=== PATIENT | male | born 1930 | race Caucasian/White ===

== ENCOUNTER → 2016-06-27 | Outpatient (CLI) | payer OTHER ==
[~2016-06-27] MED LIST: AMLO-110 PO; ESOM20CA PO; LISI-729 PO
[2016-06-27 11:13] LABS: BASO % 0.4 %; BASO ABS # 0.02 K/uL (0-0.2); COMPLETE YES; EOS % 6.5 %; HEMATOCRIT 39.2 % (42-52); IG% 0.4 %; LYMPH % 30.3 %; LYMPH ABS # 1.41 K/uL (1.2-3.4); MEAN CELL VOLUME 100.5 fL (80-100); MEAN CORPUSCULAR HEMOGLOBIN 34.9 pg (25-34); MEAN CORPUSCULAR HGB CONC 34.7 g/dl (32-36); MEAN PLATELET VOLUME 10.2 fL (7.4-10.4); MONO % 6.7 %; NEUT % 55.7 %; PLATELET COUNT 132 K/uL (130-400); WHITE BLOOD COUNT 4.65 K/uL (4.8-10.8)
[2016-06-27 11:42] LABS: ALT/SGPT 22 U/L (12-78); BLOOD UREA NITROGEN 20 mg/dl (7-18); BUN/CREATININE RATIO 12.3 (10-20); CALCIUM 8.6 mg/dl (8.5-10.1); CARBON DIOXIDE 28 mmol/L (21-32); CHLORIDE 108 mmol/L (98-107); CHOLESTEROL 165 mg/dl (0-200); GLUCOSE 87 mg/dl (70-99); POTASSIUM 4.1 mmol/L (3.5-5.1); SODIUM 143 mmol/L (136-145)
[2016-06-27 11:46] LABS: ALB/GLOB RATIO 1.2 (0.9-2); ALKALINE PHOSPHATASE 57 U/L (45-117); AST/SGOT 15 U/L (15-37); CHOLESTEROL/HDL RATIO 2.6; HDL CHOLESTEROL 64 mg/dl; LDL CHOLESTEROL CALCULATED 94 mg/dl; TRIGLYCERIDES 33 mg/dl (0-150); VERY LOW DENSITY LIPOPROT CALC 7 mg/dl
--- NOTE | 2016-07-02 10:43 | CODING QUERY MEDICAL NECESSITY ---
SUPPORTING DIAGNOSIS NEEDED A supporting diagnosis is required for the test/procedure performed on this patient in order for us to be reimbursed by the patient's insurance. Please provide a supporting diagnosis for the following test/procedure listed below next to the test name along with your signature. *If there is no additional diagnosis for this patient that would support the following test/procedure please document that below next to the test/procedure. Test(s)/Procedure(s) that require a supporting diagnosis: * VITAMIN D 25-HYDROXY DIAGNOSIS: * DOS: 06/27/16 Provider Signature: Date: Thank you Nupur [facility] Information [facility] Once completed, please kindly fax back to [phone] For questions please call [phone]
== END | disposition home or self-care (01) ==
LOC: C.LABBC 07:37
PROVIDERS: ATTEND Internal Medicine
DX: R91.1 Solitary pulmonary nodule (principal); M85.80 Other specified disorders of bone density and structure, unspecified site

== ENCOUNTER → 2016-06-28 | Outpatient (CLI) | payer OTHER ==
[2016-06-28 11:25] LABS: FERRITIN 351.8 ng/ml (8.0-388.0)
== END | disposition home or self-care (01) ==
LOC: C.LABBC 07:37
PROVIDERS: ATTEND Internal Medicine
DX: D69.6 Thrombocytopenia, unspecified (principal)

== ENCOUNTER → 2016-06-29 | Outpatient (CLI) | payer OTHER ==
[2016-06-30 08:00] LABS: PATIENT HEIGHT 177.8 cm
[2016-06-30 11:55] LABS: CREATININE 1.7 mg/dl (0.6-1.4)
[2016-07-02 07:20] LABS: ALBUMIN % 64.56 %; ALPHA-2-GLOBULIN % 7.72 %; CREATININE UR 80 MG/DL (20-370); GAMMA GLOBULIN % 10.02 %
== END | disposition home or self-care (01) ==
LOC: C.LABBC 07:36
PROVIDERS: ATTEND Internal Medicine
DX: D69.6 Thrombocytopenia, unspecified (principal)

== ENCOUNTER → 2016-07-02 | Outpatient (CLI) | payer OTHER ==
--- NOTE | 2016-07-02 14:49 | DIAGNOSTIC IMAGING REPORT ---
EXAMINATION: RENAL ULTRASOUND CLINICAL HISTORY: CHRONIC KIDNEY DISEASE COMPARISON STUDY: CT scan dated 08/17/2015 FINDINGS: The right kidney measures 10.6 cm. The left kidney measures 0.4 cm. There is no evidence of hydronephrosis. 2 right renal cysts are visualized measuring 14 mm and 6 mm respectively. There is mild bilateral renal cortical thinning. No bladder abnormalities are visualized. Bilateral ureteral jets were visualized. IMPRESSION : 1. Small right renal cysts 2. Mild bilateral renal cortical thinning 3. No evidence of hydronephrosis Electronically signed by: Christopher Perry M.D. 07/02/2016 2:48 PM Dictated Date/Time: 07/02/2016 2:47 PM
== END | disposition home or self-care (01) ==
LOC: C.ULTRBC 13:33
PROVIDERS: ATTEND Internal Medicine
DX: N18.3 Chronic kidney disease, stage 3 (moderate) (principal); N28.1 Cyst of kidney, acquired

== ENCOUNTER → 2016-08-14 | Outpatient (CLI) | payer OTHER ==
--- NOTE | 2016-08-14 11:43 | DIAGNOSTIC IMAGING REPORT ---
CT OF THE CHEST WITHOUT IV CONTRAST CLINICAL HISTORY: Pulmonary nodule. Shortness of breath. COMPARISON STUDY: Abdominal pelvic CT scan dated 08/19/2015 CT DOSE: 462.27 mGycm TECHNIQUE: CT of the thorax was performed from the thoracic inlet to the lung bases. Images are reviewed in the axial, sagittal, and coronal planes. IV contrast was not administered for this examination. FINDINGS: Thyroid: Imaged portions of the thyroid gland are normal in appearance. Thoracic aorta: The thoracic aorta is normal in course and caliber, noting standard 3 vessel arch anatomy. Heart: The heart is normal in size. There are mild coronary artery calcifications. Lungs and pleural spaces: No pleural effusions are visualized. There is no focal pulmonary consolidation. There is a 4 mm right lower lobe pulmonary nodule as visualized in image #269/361. This remain similar to the prior study. There is a 3 mm right apical pulmonary nodule as visualized in image #46/361. There is a 2 mm left lower lobe pulmonary nodule as visualized in image #2 the 8/361. Mediastinum: There is no evidence of pathologic adenopathy Evi: There is no evidence of pathologic adenopathy given the limitations of a noncontrast study Axilla: Clear. Upper abdomen: Partially visualized upper abdominal viscera is within normal limits. Skeletal structures: There is a mild superior endplate T5 compression deformity. IMPRESSION: 1. No evidence of focal pulmonary consolidation 2. No evidence of pathologic adenopathy 3. Tiny low suspicion pulmonary nodules. The largest, a 4 mm right lower lobe pulmonary nodule remains unchanged from the abdominal CT scan dated July 2015 Electronically signed by: Christopher Perry M.D. 08/14/2016 11:42 AM Dictated Date/Time: 08/14/2016 11:35 AM
== END | disposition home or self-care (01) ==
LOC: C.CTS 11:23
PROVIDERS: ATTEND Internal Medicine
DX: R91.1 Solitary pulmonary nodule (principal); R91.8 Other nonspecific abnormal finding of lung field

== ENCOUNTER → 2017-01-02 | Outpatient (CLI) | payer OTHER ==
[2017-01-02 13:37] LABS: BASO % 0.2 %; BASO ABS # 0.01 K/uL (0-0.2); COMPLETE YES; EOS % 5.6 %; HEMATOCRIT 40.3 % (42-52); IG% 0.3 %; LYMPH % 29.5 %; LYMPH ABS # 1.75 K/uL (1.2-3.4); MEAN CELL VOLUME 100.5 fL (80-100); MEAN CORPUSCULAR HEMOGLOBIN 35.7 pg (25-34); MEAN CORPUSCULAR HGB CONC 35.5 g/dl (32-36); MEAN PLATELET VOLUME 10.1 fL (7.4-10.4); MONO % 4.2 %; NEUT % 60.2 %; PLATELET COUNT 153 K/uL (130-400); RED BLOOD COUNT 4.01 M/uL (4.7-6.1); WHITE BLOOD COUNT 5.93 K/uL (4.8-10.8)
[2017-01-02 14:13] LABS: BLOOD UREA NITROGEN 18 mg/dl (7-18); BUN/CREATININE RATIO 11.9 (10-20); CALCIUM 8.8 mg/dl (8.5-10.1); CARBON DIOXIDE 28 mmol/L (21-32); CHLORIDE 107 mmol/L (98-107); GLUCOSE 97 mg/dl (70-99); POTASSIUM 4.3 mmol/L (3.5-5.1); SODIUM 141 mmol/L (136-145)
== END | disposition home or self-care (01) ==
LOC: C.LABBC 11:51
PROVIDERS: ATTEND Internal Medicine
DX: I12.9 Hypertensive chronic kidney disease with stage 1 through stage 4 chronic kidney disease, or unspecified chronic kidney disease (principal); N18.3 Chronic kidney disease, stage 3 (moderate); D53.9 Nutritional anemia, unspecified; E55.9 Vitamin D deficiency, unspecified

== ENCOUNTER → 2017-04-09 | Outpatient (CLI) | payer OTHER ==
--- NOTE | 2017-04-09 13:32 | DIAGNOSTIC IMAGING REPORT ---
RIGHT LOWER EXTREMITY VENOUS DOPPLER HISTORY: M25.469 Effusion of knee COMPARISON STUDY: None. FINDINGS: There is normal compressibility, flow, and augmentation within the right lower extremity deep venous system. A 5.6 x 5.0 x 2.6 cm popliteal cyst. IMPRESSION: No DVT within the right lower extremity Electronically signed by: Amandeep Watson M.D. 04/09/2017 1:30 PM Dictated Date/Time: 04/09/2017 1:30 PM
--- NOTE | 2017-04-09 13:34 | DIAGNOSTIC IMAGING REPORT ---
RIGHT KNEE 2 VIEWS CLINICAL HISTORY: Joint effusion. FINDINGS: AP and lateral views of the right knee are obtained. No prior studies are available for comparison at the time of dictation. The skeletal structures are osteopenic. No fracture is seen. There is mild to moderate tricompartmental degenerative joint space narrowing. There are tiny marginal osteophytes, patellar enthesophytes, and degenerative beaking of the tibial spine. A small joint effusion is suspected. Mild prepatellar soft tissue swelling is noted. Atherosclerotic calcification is observed in the popliteal artery. IMPRESSION: 1. Prepatellar soft tissue swelling and small joint effusion. No acute bony abnormality is identified. 2. Osteopenia and mild degenerative change as above. Electronically signed by: Lucien Sky M.D. 04/09/2017 1:32 PM Dictated Date/Time: 04/09/2017 1:31 PM
== END | disposition home or self-care (01) ==
LOC: C.ULTRBC 12:50
PROVIDERS: ATTEND Internal Medicine
DX: M17.11 Unilateral primary osteoarthritis, right knee (principal); M85.88 Other specified disorders of bone density and structure, other site